=== PATIENT | female | born 1995 | race Caucasian/White ===

== ENCOUNTER 2016-06-19 10:28 | Emergency (ER) | payer BC ==
[2016-06-19 10:48] VITALS: BP 132/90
--- NOTE | 2016-06-19 11:00 | UC ---
Throat Pain/Nasal Mateo HPI - HPI Summary HPI Summary: nasal congestion / cough x 4 days + sore throat , body aches ? fever + chills - History of Current Complaint Chief Complaint: UCRespiratory Stated Complaint: SORE THROAT,ACHY Time Seen by Provider: 06/19/16 10:51 Hx Obtained From: Patient Hx Last Menstrual Period: 05/23/16 Onset/Duration: Gradual Onset, Lasting Days - 4, Still Present Severity: Moderate Cough: Nonproductive Associated Signs & Symptoms: Positive: Nasal Discharge. Negative: Sinus Discomfort, Fever, Rash - Allergies/Home Medications Allergies/Adverse Reactions: Allergies Allergy/AdvReac Type Severity Reaction Status Date / Time No Known Allergies Allergy Verified 06/19/16 10:42 Home Medications: Home Medications Ibuprofen TAB* [Advil TAB*] 400 mg PO Q6H PRN 06/19/16 [History Confirmed ] LoraTADine TAB(NF) [Claritin 10 MG TAB(NF)] 10 mg PO DAILY PRN 06/19/16 [ History Confirmed 06/19/16] Pseudoephedrine HCL ER TAB* [Sudafed 12 Hour*] 120 mg PO BID PRN 06/19/16 [ History Confirmed 06/19/16] PMH/Surg Hx/FS Hx/Imm Hx Previously Healthy: Yes - Surgical History Surgical History: None - Family History Known Family History: Negative: Diabetes - Social History Alcohol Use: None Substance Use Type: None Smoking Status (MU): Never Smoked Tobacco - Immunization History Most Recent Influenza Vaccination: not this season Review of Systems Constitutional: Chills, Fatigue Skin: Negative Eyes: Negative ENT: Sore Throat, Nasal Discharge Respiratory: Cough Cardiovascular: Negative Gastrointestinal: Negative All Other Systems Reviewed And Are Negative: Yes Physical Exam Triage Information Reviewed: Yes Appearance: Well-Appearing, No Pain Distress, Well-Nourished Vital Signs: Initial Vital Signs Temp 98 F 06/19/16 10:44 Pulse 101 06/19/16 10:44 Resp 16 06/19/16 10:44 BP 132/90 06/19/16 10:44 Pulse Ox 99 06/19/16 10:44 Vital Signs Reviewed: Yes Eye Exam: Normal Eyes: Positive: Conjunctiva Clear ENT: Positive: Normal ENT inspection, Hearing grossly normal, Pharyngeal erythema, Nasal congestion, Nasal drainage, TMs normal Neck exam: Normal Neck: Positive: Supple, Nontender, No Lymphadenopathy Respiratory: Positive: Chest non-tender, Lungs clear, Normal breath sounds Cardiovascular: Positive: RRR, No Murmur, Pulses Normal Abdominal Exam: Normal Abdomen Description: Positive: Nontender, Soft Bowel Sounds: Positive: Present Musculoskeletal: Positive: Strength Intact, ROM Intact, No Edema Skin Exam: Normal Throat Pain/Nasal Course/Dx - Differential Dx/Diagnosis Provider Diagnoses: pharyngitis Discharge - Discharge Plan Condition: Stable Disposition: HOME
== END 2016-06-19 11:20 | disposition home or self-care (01) ==
LOC: UCCORT 10:28
DX: J02.9 Acute pharyngitis, unspecified (principal); R09.81 Nasal congestion
CPT/HCPCS: 99212; G0463